=== PATIENT | male | born 1975 ===

== ENCOUNTER 2021-04-14 13:02 | Emergency (ER) | payer SELFPAY ==
[2021-04-14] MEDS ORDERED: Ibuprofen 400 MG Tab PO ONE (13:25)
--- NOTE | 2021-04-14 13:42 | EDM.PDOC ---
ED HPI GENERAL MEDICAL PROBLEM - General Chief Complaint: Upper Extremity Injury/Pain Stated Complaint: FELL ON HANDS Time Seen by Provider: 04/14/21 13:20 Source of Information: Reports: Patient, RN, RN Notes Reviewed History Limitations: Reports: No Limitations - History of Present Illness INITIAL COMMENTS - FREE TEXT/NARRATIVE: Julia is a 45 y/o male who presents to the ED via personal vehicle with complaints of bilateral wrist pain. The patient reports approximately 20 minutes ago he was climbing a ladder and slipped off, landing on bilateral wrists/proximal palms. He is now experiencing burning pain to both palms that radiates into all fingers. He attests to numbness and tingling in his distal fingers, but reports he experienced chronic numbness and tingling due carpal tunnel syndrome. He denies loss of consciousness during the event and did not strike his head. The patient reports he underwent surgical carpal tunnel fixation of both wrists; left wrist performed 3 months ago and right wrist performed 6 months ago. He had a follow up appointment with his surgeon last week with appropriate healing; he is due to meet with his neurosurgeon in one month. He is still able to move his upper extremities, but notes it is extremely painful to due so. He has not taken any medications for his symptoms. Left Lower Hand Pain Score (Numeric/FACES): 5 Right Lower Hand Pain Score (Numeric/FACES): 8 - Related Data Allergies Allergy/AdvReac Type Severity Reaction Status Date / Time egg Allergy Other Verified 04/14/21 13:17 Home Meds: Home Meds . [No Known Home Meds] 04/14/21 [History] Social & Family History - Family History Family Medical History: No Pertinent Family History - Tobacco Use Tobacco Use Status *Q: Current Every Day Tobacco User Years of Tobacco use: 34 Packs/Tins Daily: 0.5 - Caffeine Use Caffeine Use: Reports: Coffee - Recreational Drug Use Recreational Drug Use: No Review of Systems - Review of Systems Review Of Systems: Comprehensive ROS is negative, except as noted in HPI. ED EXAM, GENERAL - Physical Exam Exam: See Below Exam Limited By: No Limitations General Appearance: Alert, Mild Distress (Pain to bilateral wrists) Eye Exam: Bilateral Eye: EOMI, Normal Inspection, PERRL (3mm) Ears: Normal External Exam, Hearing Grossly Normal Nose: Normal Inspection, Normal Mucosa, No Blood Throat/Mouth: Normal Inspection, Normal Gums, Normal Oropharynx, Normal Voice, No Airway Compromise Head: Atraumatic, Normocephalic Neck: Normal Inspection, Supple, Non-Tender, Full Range of Motion Respiratory/Chest: No Respiratory Distress, Lungs Clear, Normal Breath Sounds, No Accessory Muscle Use, Chest Non-Tender Cardiovascular: Normal Peripheral Pulses, Regular Rate, Rhythm, No Edema, No Gallop, No JVD, No Murmur, No Rub Peripheral Pulses: 2+: Radial (L), Radial (R) GI/Abdominal: Normal Bowel Sounds, Soft, Non-Tender (Male) Exam: Deferred Rectal (Males) Exam: Deferred Extremities: Arm Pain (To bilateral anterior wrists), Limited Range of Motion (To bilateral wrists), Redness (To bilateral anterior proximal palm). No: Joint Swelling, Increased Warmth, Mottled, Pallor Neurological: Alert, Oriented, CN II-XII Intact, Normal Cognition, Normal Gait, No Motor/Sensory Deficits Psychiatric: Normal Mood, Anxious Skin Exam: Warm, Dry, Intact, No Rash, Ecchymosis (To left anterior proximal palm), Erythema (To right anterior proximal palm). No: Cyanosis, Increased Warmth, Jaundice, Mottled, Pallor, Petechiae ED TRAUMA EXTREMITY PROCEDURES - Splinting Right Upper Extremity Pre-Procedure NV Status: Normal Post-Procedure NV Status: Normal Splint Material: Fiberglass Splint Design: Sugar Tong Applied & Form Fitted By: Provider, Nurse Provider Post-Splint Application NV Check: NV Status Normal, Good Position Complications: No Course - Vital Signs Last Recorded V/S: Last Vital Signs Temp 97.8 F 04/14/21 13:12 Pulse 88 04/14/21 13:12 Resp 18 04/14/21 13:12 BP 148/96 H 04/14/21 13:12 Pulse Ox 97 04/14/21 13:12 - Orders/Labs/Meds Meds: Medications Discontinued Medications Generic Name Dose Route Start Last Admin Trade Name Mita PRN Reason Stop Dose Admin Ibuprofen 400 mg 04/14/21 13:25 04/14/21 13:31 Ibuprofen 400 Mg Tab PO 04/14/21 13:26 400 mg ONETIME ONE Administration Ondansetron HCl 4 mg 04/14/21 15:47 04/14/21 16:05 Ondansetron 4 Mg Tab.Dis PO 04/14/21 15:48 4 mg ONETIME ONE Administration Oxycodone/Acetaminophen 1 tab 04/14/21 15:47 04/14/21 16:05 Acetaminophen/Oxycodone 325-5 Mg Tab PO 04/14/21 15:48 1 tab ONETIME ONE Administration - Re-Assessments/Exams Free Text/Narrative Re-Assessment/Exam: 04/14/21 Xray of bilateral wrists obtained. Patient verbalized improvement in pain following Ibuprofen. Findings of examination and imaging reviewed with patient. Sugar tong splint applied to right upper extremity for distal radial fracture. Patient instructed to follow up with orthopedic surgeon in 3-5 days. PACs images pushed to [facility], per patient request. Discussed supportive cares for distal radial fracture. Red flag signs and symptoms which would warrant reevaluation reviewed. Patient verbalized understanding and agreement with the plan of care. Departure - Departure Time of Disposition: 16:36 Disposition: Home, Self-Care 01 Condition: Good Clinical Impression: Fall from ladder Qualifiers: Encounter type: initial encounter Qualified Code(s): W11.XXXA - Fall on and from ladder, initial encounter Fracture of right distal radius Qualifiers: Encounter type: initial encounter Fracture type: closed Fracture morphology: unspecified fracture morphology Qualified Code(s): S52.501A - Unspecified fracture of the lower end of right radius, initial encounter for closed fracture - Discharge Information *PRESCRIPTION DRUG MONITORING PROGRAM REVIEWED*: Not Applicable *COPY OF PRESCRIPTION DRUG MONITORING REPORT IN PATIENT HEIDI: Not Applicable Instructions: Radial Fracture, Cast or Splint Care, Adult, [id number] Forms: ED Department Discharge Additional Instructions: Rx: Percocet Rx: Zofran ODT 1.) Follow up with orthopedic surgeon in 3-5 days for distal radial fracture. 2.) Keep splint in place at all times; monitor for numbness/tingling or bluish discoloration to fingertips. 3.) You may take ibuprofen (Advil/Motrin) 400mg every six hours, as pain and persists. You may also take acetaminophen (Tylenol) 325mg every six hours with your Percocet, as pain persists. You may stagger these medications so you are receiving a dose every three hours. Sepsis Event Note (ED) - Evaluation Sepsis Screening Result: No Definite Risk - Focused Exam Vital Signs: Vital Signs Temp Pulse Resp BP Pulse Ox 04/14/21 13:12 97.8 F 88 18 148/96 H 97
--- NOTE | 2021-04-14 15:17 | CR ---
EXAMINATION: Wrist Comp Min 3V Bi SEX: Male AGE: 45 years CLINICAL HISTORY: 45-year-old male fell off of ladder onto outstretched hands (FOOSH). Interpretation: Abnormal. *Transverse sclerotic line distal right radial diametaphysis consistent with nondisplaced (impacted) distal radial fracture. No sign of other fracture or dislocation either wrist. No metacarpal fractures. 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
[2021-04-14] MEDS ORDERED: Ondansetron 4 MG Tab.DIS PO ONE (15:47)
[2021-04-14] MEDS ORDERED: Acetaminophen/oxyCODONE 325-5 MG Tab PO ONE (15:47)
== END 2021-04-14 16:20 | disposition home or self-care (01) ==
LOC: DL.ED 13:02
DX: S52.501A Unspecified fracture of the lower end of right radius, initial encounter for closed fracture (principal); Z91.012 Allergy to eggs; Z72.0 Tobacco use; W11.XXXA Fall on and from ladder, initial encounter
CPT/HCPCS: 29105; 29125; 73110-50; 99283-25; 99284; A9270-GY